=== PATIENT | male | born 1965 | race Caucasian/White ===

== ENCOUNTER 2016-05-27 11:46 | Emergency (ER) ==
[2016-05-27] MEDS ORDERED: NORCO-5 PO ONE (13:06)
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
[2016-05-27 13:24] VITALS: BP 141/78
--- NOTE | 2016-05-27 13:52 | Diag Imaging Result Document ---
PROCEDURE NAME: ANKLE COMPLETE RIGHT - 05/27/2016 X-RAY RIGHT ANKLE, 3 VIEWS: COMPARISON: 04/30/2016. FINDINGS: There are some degenerative heel spurs at the Achilles insertion, stable from prior. No fracture or dislocation. Joint spaces are preserved. IMPRESSION: No acute disease or change from prior.
== END 2016-05-27 14:09 | disposition home or self-care (01) ==
LOC: ED 11:46
DX: S93.401A Sprain of unspecified ligament of right ankle, initial encounter (principal); F41.1 Generalized anxiety disorder; M25.571 Pain in right ankle and joints of right foot; M25.471 Effusion, right ankle; I10 Essential (primary) hypertension; Z76.0 Encounter for issue of repeat prescription; Z85.828 Personal history of other malignant neoplasm of skin; Z98.84 Bariatric surgery status; W01.0XXA Fall on same level from slipping, tripping and stumbling without subsequent striking against object, initial encounter